=== PATIENT | male | born 1965 | race Caucasian/White ===

== ENCOUNTER 2017-06-22 10:03 | Day surgery (SDC) | payer BC ==
[2017-06-16 17:23] VITALS: BMI 27.3
[2017-06-22 11:08] VITALS: RESP 16; TEMP 98.3
[2017-06-22] MEDS: LACTATED RINGERS 1,000 ML IV SCH ×2 (11:15→11:47)
[2017-06-22] MEDS ORDERED: LIDOCAINE 1% INJ 10MG/ML (20 ML MDV) ONE (11:49)
[2017-06-22] MEDS ORDERED: PROPOFOL 10 MG/ML 20 ML VIAL IV ONE (11:49)
--- NOTE | 2017-06-22 12:27 | P.GSHP ---
History of Present Illness H&P Date: 06/22/17 Chief Complaint: GI bleed This is a 52-year-old male referred from Dr. Liao. Patient with rectal bleeding. He presents today for colonoscopy. Past Medical History Additional Past Medical History / Comment(s): jamie inguinal hernias,tinnitis left ear History of Any Multi-Drug Resistant Organisms: None Reported Additional Past Surgical History / Comment(s): tubes placed jamie ears,plastic ear drum to left ear Past Anesthesia/Blood Transfusion Reactions: No Reported Reaction Smoking Status: Former smoker - Past Family History Mother Family Medical History: Cancer Additional Family Medical History / Comment(s): breast,bone Father Additional Family Medical History / Comment(s): Alheimers Medications and Allergies Home Medications Medication Instructions Recorded Confirmed Type No Known Home Medications [No 06/16/17 06/16/17 History Known Home Medications] Allergies Allergy/AdvReac Type Severity Reaction Status Date / Time alcohol Allergy affects Verified 06/22/17 11:00 central nervous system Surgical - Exam Vital Signs Temp Pulse Resp BP Pulse Ox 98.3 F 87 16 135/88 96 06/22/17 11:06 06/22/17 11:06 06/22/17 11:06 06/22/17 11:06 06/22/17 11:06 - General well developed, no distress - Eyes PERRL - ENT normal pinna - Neck no masses - Respiratory normal expansion - Cardiovascular Rhythm: regular - Abdomen Abdomen: soft, non tender Assessment and Plan Assessment: We'll perform colonoscopy.
--- NOTE | 2017-06-22 12:38 | P.OP ---
Date of Procedure: 06/22/17 Preoperative Diagnosis: GI bleed Postoperative Diagnosis: Mild internal and Hemorrhoids Procedure(s) Performed: Colonoscopy Anesthesia: MAC Surgeon: Curtis Fajardo Pathology: none sent Condition: stable Disposition: PACU Description of Procedure: Patient's placed on the endoscopy table lateral position. He received IV sedation. Digital rectal exam was performed which revealed a few internal/ external hemorrhoids. Flexible colonoscope was then placed patient anus passed throughout the entire colon. The ileocecal valve was visualized. The cecum, ascending and transverse colon appeared normal. In the descending colon was a few scattered diverticula. Scope was then brought back into the sigmoid colon this appeared normal. Scope summer back the rectum and this was normal. Scope was withdrawn for patient.
[2017-06-22 12:57] VITALS: BP 116/87; PULSE 88
--- NOTE | 2017-06-27 05:22 | CDI ---
Outpatient Documentation Clarification Form Date: 06/27/2017 CDS/Lace Mender Name: Travis Hubbard Phone: If any questions, call Anupama Santiago Investigator at [phone] Patient Name: Erica Boggs Admit Date: 06/22/2017 Discharge Date:06/22/2017 ATTENTION: The [facility] Coding Staff appreciate your assistance in clarifying documentation. Please respond to the clarification below the line at the bottom and electronically sign. The [facility] Coding staff will review the response and follow-up if needed. Please note: Queries are made part of the Legal Health Record. If you have any questions, please contact the Investigator. Dear Dr. Fajardo, 52- year old male presents for colonoscopy for evaluation of GI Bleeding. As per H&P and Operative notes preoperative diagnosis was GI bleeding .Post- operative diagnosis was diverticulosis and internal hemorrhoids. Please clarify the etiology of GI bleeding and relation with diverticulosis and hemorrhoids Based on your clinical opinion please clarify etiology of GI Bleeding and relation with diverticulosis and hemorrhoids, is GI bleeding secondary to hemorrhoids or incidental finding Thank you for your kind consideration. MTDD
--- NOTE | 2017-07-04 07:34 | CDI ---
Outpatient Documentation Clarification Form Date: 06/27/2017 CDS/Hair Cutter Name: Travis Hubbard Phone: If any questions, call Anupama Santiago Grain Farmworker at [phone] Patient Name: Erica Boggs Admit Date: 06/22/2017 Discharge Date:06/22/2017 ATTENTION: The [facility] Coding Staff appreciate your assistance in clarifying documentation. Please respond to the clarification below the line at the bottom and electronically sign. The [facility] Coding staff will review the response and follow-up if needed. Please note: Queries are made part of the Legal Health Record. If you have any questions, please contact the Grain Farmworker. Dear Dr. Fajardo, 52- year old male presents for colonoscopy for evaluation of GI Bleeding. As per H&P and Operative notes preoperative diagnosis was GI bleeding .Post- operative diagnosis was diverticulosis and internal hemorrhoids. Please clarify the etiology of GI bleeding and relation with diverticulosis and hemorrhoids Based on your clinical opinion please clarify etiology of GI Bleeding and relation with diverticulosis and hemorrhoids, is GI bleeding secondary to hemorrhoids or incidental finding Thank you for your kind consideration. It is unclear whether his GI bleed was removed due to his diverticulosis or hemorrhoids at the time of his colonoscopy._ MTDD
== END 2017-06-22 13:33 | disposition home or self-care (01) ==
LOC: ORWHC2ENDO 10:03
PROVIDERS: ATTEND Surgery
DX: K57.30 Diverticulosis of large intestine without perforation or abscess without bleeding (principal); K64.8 Other hemorrhoids; K64.4 Residual hemorrhoidal skin tags; Z87.891 Personal history of nicotine dependence
CPT/HCPCS: 45378; J2001; J2704

== ENCOUNTER 2017-06-28 06:27 | Day surgery (SDC) | payer BC ==
[2017-06-16 16:43] VITALS: BMI 27.3
[~2017-06-28 06:27] MED LIST: DEXAMETHASONE SOD PHOSPHATE 10 MG/ML 1 ML VIAL IV ONE; HEPARIN SODIUM,PORCINE 5,000 UNIT/ML 1 ML VIAL SQ ONE; HYDROmorphone 0.5 MG/0.5 ML SYRINGE IVP PRN; MIDAZOLAM 2 MG/2 ML VIAL IV PRN; SCOPOLAMINE 1.5MG/72HR PATCH TRANSDERM ONE; ceFAZolin IN SWFI 2 GM/20 ML SYRINGE IVP ONE; fentaNYL (PF) 50 MCG/ML 2 ML AMP IV PRN
[2017-06-28 06:51] VITALS: RESP 16; TEMP 97.2
[2017-06-28] MEDS ORDERED: LACTATED RINGERS 1,000 ML IV ONE ×4 (07:06→08:02)
[2017-06-28] MEDS: LACTATED RINGERS 1,000 ML IV SCH ×2 (07:06→08:01)
[2017-06-28] MEDS ORDERED: LIDOCAINE 1% 20 ML VIAL (10MG/ML) FOR IV START INTRADERMA ONE (07:06)
[2017-06-28] MEDS: ONDANSETRON 4 MG/2 ML VIAL IVP ONE ×2 (07:20→11:07)
[2017-06-28] MEDS ORDERED: BUPIVACAINE (PF) 0.25% 30 ML VIAL SQ ONE (07:40)
--- NOTE | 2017-06-28 07:55 | P.GSHP ---
History of Present Illness H&P Date: 06/28/17 Chief Complaint: Right inguinal hernia This a 52-year-old male referred from Dr. Leonides Piedra. Patient complaints of right groin pain. He seen seen in the office and found have a right inguinal hernia. Past Medical History Additional Past Medical History / Comment(s): jamie inguinal hernias,tinnitis left ear History of Any Multi-Drug Resistant Organisms: None Reported Additional Past Surgical History / Comment(s): tubes placed jamie ears,plastic ear drum to left ear Past Anesthesia/Blood Transfusion Reactions: No Reported Reaction Additional Past Anesthesia/Blood Transfusion Reaction / Comment(s): no hx blood transfusion Smoking Status: Former smoker - Past Family History Mother Family Medical History: Cancer Additional Family Medical History / Comment(s): breast CA,bone Father Additional Family Medical History / Comment(s): Alheimers Medications and Allergies Home Medications Medication Instructions Recorded Confirmed Type No Known Home Medications [No 06/16/17 06/28/17 History Known Home Medications] Allergies Allergy/AdvReac Type Severity Reaction Status Date / Time alcohol Allergy affects Verified 06/28/17 06:41 central nervous system Surgical - Exam Vital Signs Temp Pulse Resp BP Pulse Ox 97.2 F L 66 16 137/90 98 06/28/17 06:50 06/28/17 06:50 06/28/17 06:50 06/28/17 06:50 06/28/17 06:50 - General well developed, no distress - Eyes PERRL - ENT normal pinna - Neck no masses - Respiratory normal expansion - Cardiovascular Rhythm: regular - Abdomen Abdomen: soft, non tender Assessment and Plan Assessment: Right inguinal hernia. We'll perform laparoscopic robotic-assisted repair.
[2017-06-28] MEDS ORDERED: ROCURONIUM BROMIDE 10 MG/ML 10 ML VIAL IV ONE (08:02)
[2017-06-28] MEDS ORDERED: fentaNYL (PF) 50 MCG/ML 2 ML AMP ONE (08:02)
[2017-06-28] MEDS ORDERED: GLYCOPYRROLATE 0.2 MG/ML 2 ML VIAL ONE (08:02)
[2017-06-28] MEDS ORDERED: LIDOCAINE 1% INJ 10MG/ML (20 ML MDV) ONE (08:02)
[2017-06-28] MEDS ORDERED: SUCCINYLCHOLINE CHLORIDE 100 MG/5 ML SYR IV ONE (08:02)
[2017-06-28] MEDS ORDERED: MIDAZOLAM 2 MG/2 ML VIAL ONE (08:02)
[2017-06-28] MEDS ORDERED: KETOROLAC 30 MG/ML 1 ML VIAL ONE (08:02)
[2017-06-28] MEDS ORDERED: PROPOFOL 10 MG/ML 20 ML VIAL IV ONE (08:02)
[2017-06-28] MEDS ORDERED: NEOSTIGMINE 1 MG/ML 10 ML VIAL ONE (08:02)
--- NOTE | 2017-06-28 09:43 | P.OP ---
Date of Procedure: 06/28/17 Preoperative Diagnosis: Right inguinal hernia Postoperative Diagnosis: Right inguinal hernia Procedure(s) Performed: Laparoscopic robotic repair of right inguinal hernia Anesthesia: WILBERT Surgeon: Curtis Fajardo Estimated Blood Loss (ml): 5 Pathology: none sent Condition: stable Disposition: PACU Description of Procedure: MThe patient's placed on the operating table in the supine position. The patient received general anesthesia. The patient's abdomen was prepped and draped in usual sterile fashion. The skin was anesthetized 1% local Xylocaine at the incision sites. Using an 11 blade a skin incision was made at the umbilicus. The fascia was grasped with a [place] and then the peritoneal cavity was entered with the Veress needle. Position of the Veress needle was confirmed with a positive drop test. After adequate insufflation a 5 mm trocar was placed into the peritoneal cavity. The Laparoscope was placed the peritoneal cavity. And a robotic 8 mm trocar was placed in the right lateral position and then another 8 mm robotic trochars placed in the left lateral position. The original 5 mm trocar was exchanged for a 12 mm trocar. The patient was placed in reverse Trendelenburg and then the patient was docked to the robot. Next the peritoneum over top of the hernia was incised and then using blunt and sharp dissection and electrocautery the hernia sac was dissected free from the floor of the inguinal canal. The hernia sac was completely reduced into the peritoneal cavity. And then using the Pro tire maintenance technician mesh the hernia was repaired. The peritoneum was then sutured with 20V lock suture. The patient was then undocked the robot. The needle was withdrawn from the peritoneal cavity. The umbilical trocar site was closed with 0 Ethibond suture. The skin was closed interrupted 3-0 Monocryl suture. Dermabond dressing was applied. Patient was sent to recovery in stable condition.
[2017-06-28] MEDS ORDERED: HYDROcodone/APAP 7.5-325MG 1 EACH TAB PO ONE (13:15)
[2017-06-28 13:17] VITALS: BP 128/74; PULSE 78
== END 2017-06-28 14:14 | disposition home or self-care (01) ==
LOC: OR 06:27
PROVIDERS: ATTEND Surgery
DX: K40.90 Unilateral inguinal hernia, without obstruction or gangrene, not specified as recurrent (principal); Z87.891 Personal history of nicotine dependence
CPT/HCPCS: 49650; C1781; J2250; J1644; J1100; J2710; J2405; J2001; J3010; J1885; J0330; J2704; J0690

== ENCOUNTER → 2021-04-07 | Outpatient (CLI) | payer BC ==
--- NOTE | 2021-04-07 15:00 | ECHOF ---
Referral Reason:R07.89 chest pain MEASUREMENTS -------- HEIGHT: 172.7 cm WEIGHT: 78.0 kg BP: IVSd: 1.2 cm (0.6 - 1.1) LVIDd: 4.8 cm (3.9 - 5.3) LVPWd: 1.1 cm (0.6 - 1.1) EDV(Teich): 110 ml IVSs: 1.8 cm LVIDs: 3.1 cm LVPWs: 1.4 cm %IVS Thck: 47 % ESV(Teich): 37 ml EF(Teich): 66 % %FS: 37 % SV(Teich): 73 ml RVIDd: 4.1 cm (< 3.3) LALs A4C: 4.8 cm LAAs A4C: 15.5 cm LAESV A-L A4C: 42 ml LAESV MOD A4C: 38 ml LALs A2C: 4.8 cm LAAs A2C: 16.5 cm LAESV A-L A2C: 48 ml LAESV MOD A2C: 46 ml LAESV(A-L): 45 ml LAESV Index (A-L): 23.68 ml/m Ao Diam: 3.7 cm (2.0 - 3.7) LA Diam: 4.3 cm (2.7 - 3.8) AV Cusp: 2.5 cm (1.5 - 2.6) EPSS: 0.3 cm MV E Zeke: 0.55 m/s MV DecT: 197 ms MV Dec Yancey: 2.8 m/s MV A Zeke: 0.75 m/s MV E/A Ratio: 0.73 MV PHT: 57 ms LVOT Vmax: 0.92 m/s LVOT maxP.39 mmHg AV Vmax: 0.92 m/s AV maxP.40 mmHg TR Vmax: 2.16 m/s TR maxP.73 mmHg RAP: 5.00 mmHg RVSP: 23.73 mmHg MV EF SLOPE: 71.27 mm/s (70 - 150) MV EXCURSION: 17.01 mm (> 18.000) FINDINGS -------- Sinus rhythm. This was a technically adequate study. The left ventricular size is normal. There is borderline concentric left ventricular hypertrophy. Overall left ventricular systolic function is normal with, an EF between 55 - 60 %. The diastolic filling pattern is normal for the age of the patient 8.18. The right ventricle is moderately enlarged. Normal LA size by volume 22+/-6 ml/m2. The right atrial size is normal. Mobile interatrial septum. The aortic valve is trileaflet and appears structurally normal. There is no evidence of aortic regu rgitation. There is no evidence of aortic stenosis. There is trace mitral regurgitation. Mild tricuspid regurgitation present. There is no evidence of pulmonary hypertension. The right v entricular systolic pressure, as measured by Doppler, is 23.73mmHg. There is no pulmonic regurgitation present. The aortic root size is normal. IVC Not well visulized. There is no pericardial effusion. CONCLUSIONS -------- 1. The left ventricular size is normal. 2. There is borderline concentric left ventricular hypertrophy. 3. Overall left ventricular systolic function is normal with, an EF between 55 - 60 %. 4. The right ventricle is moderately enlarged. 5. There is trace mitral regurgitation. 6. Mild tricuspid regurgitation present. PANTRY STEWARD/STEWARDESS: Velvet Graves RDCS
--- NOTE | 2021-04-08 11:12 | P.STRESS ---
- Stress Test Note Stress Test Results/Findings: Exam Performed: EH stress test Exam Date: 04/07/21 Reason for Exam: CP Height: 5 ft 7 in Weight: 78.018 kg Protocol: ROBINSON Stage: 4 Duration of Exercise: 12:00 Resting Heart Rate: 88 Resting Blood Pressure: 138/82 Maximum Achieved Heart Rate: 180 Maximum Achieved Blood Pressure: 183/95 85% PMHR: 140 100% PMHR: 165 METS: 12.1 Technologist Comment: Stress Test Results/Findings: Patient exercise and a Robinson protocol for 12 minutes achieving a peak heart rate 180 beats a minute Normal blood pressure response to exercise No exercise induced arrhythmias No ST segment abnormalities of ischemia Excellent exercise capacity
--- NOTE | 2021-04-09 09:07 | EST ---
Stress Test Results/Findings: Exam Performed: stress test Exam Date: 04/07/21 Reason for Exam: CP Height: 5 ft 7 in Weight: 78.018 kg Protocol: ROBINSON Stage: 4 Duration of Exercise: 12:00 Resting Heart Rate: 88 Resting Blood Pressure: 138/82 Maximum Achieved Heart Rate: 180 Maximum Achieved Blood Pressure: 183/95 85% PMHR: 140 100% PMHR: 165 METS: 12.1 Technologist Comment: Stress Test Results/Findings: Patient exercise and a Robinson protocol for 12 minutes achieving a peak heart rate 180 beats a minute Normal blood pressure response to exercise No exercise induced arrhythmias No ST segment abnormalities of ischemia Excellent exercise capacity MTDD
== END | disposition home or self-care (01) ==
LOC: RADECHMAIN 08:23
PROVIDERS: ATTEND Family Medicine
DX: I51.7 Cardiomegaly (principal); I34.0 Nonrheumatic mitral (valve) insufficiency
CPT/HCPCS: 93017; 93306

== ENCOUNTER → 2022-06-12 | Outpatient (CLI) | payer BC ==
[2022-06-12 11:16] LABS: HCT 49.4 % (39.6-50.0); HGB 16.9 g/dL (13.0-17.0); MCH 28.8 pg (27.0-32.0); MCHC 34.2 g/dL (32.0-37.0); MCV 84.3 fL (80.0-97.0); Mean Platelet Volume 11.7 fL (9.5-12.2); NRBC Per 100 WBC 0 /100 WBCS (0.0-0.0); Platelet Count 176 X 10*3/uL (140-440); RBC 5.86 X 10*6/uL (4.40-5.60); RDW 12.1 % (11.5-14.5); WBC 4.72 X 10*3/uL (4.50-10.00)
[2022-06-12 11:46] LABS: ALT 38 U/L (10-49); AST 33 U/L (14-35); African American GFR (CKD) 87.5 (60.0-200.0); Albumin 4.3 g/dL (3.8-4.9); Albumin/Globulin Ratio 1.78 (1.60-3.17); Alkaline Phosphatase 85 U/L (41-126); BUN/Creat Ratio 13.85 Ratio (12.00-20.00); Blood Urea Nitrogen 15.1 mg/dL (9.0-27.0); Calcium 9.7 mg/dL (8.7-10.3); Carbon Dioxide 25.9 mmol/L (20.0-27.5); Chloride 108 mmol/L (96-109); Chol/HDL Ratio 5.42 Ratio; Globulin 2.4 g/dL (1.6-3.3); Glucose 101 mg/dL (70-110); LDL Cholesterol,Calculated 123.8 mg/dL (0.0-131.0); Non-African American GFR(CKD) 75.5 (60.0-200.0); Potassium 4.9 mmol/L (3.5-5.5); Sodium 144 mmol/L (135-145); Total Protein 6.8 g/dL (6.2-8.2)
== END | disposition home or self-care (01) ==
LOC: LABWHC1 08:30
PROVIDERS: ATTEND Family Medicine
DX: Z00.00 Encounter for general adult medical examination without abnormal findings (principal)
CPT/HCPCS: 36415; 80053; 80061; 82306; 83036; 84439; 84443; 85027

== ENCOUNTER 2022-08-12 02:22 | Emergency (ER) | payer BC ==
[2022-08-12 02:31] VITALS: RESP 18; TEMP 97.6
[2022-08-12 02:43] LABS: Basophils % (A) 1 %; Eosinophils # (A) 0.3 k/uL (0-0.7); Eosinophils % (A) 5 %; HCT 45.6 % (39.0-53.0); HGB 16.2 gm/dL (13.0-17.5); Lymphocytes % (A) 33 %; MCH 29.9 pg (25.0-35.0); MCHC 35.6 g/dL (31.0-37.0); Mean Platelet Volume 9.1; Monocytes # (A) 0.6 k/uL (0-1.0); Monocytes % (A) 9 %; Neutrophils # (A) 3.1 k/uL (1.3-7.7); Neutrophils % (A) 51 %; Platelet Count 164 k/uL (150-450); RBC 5.43 m/uL (4.30-5.90); RDW 12.3 % (11.5-15.5); WBC 6.1 k/uL (3.8-10.6)
[2022-08-12 02:53] LABS: ALT 36 U/L (4-49); AST 45 U/L (17-59); African American GFR (CKD) >90 (>60 ml/min/1.73 sqM); Alkaline Phosphatase 61 U/L (38-126); Anion Gap 9 mmol/L; Blood Urea Nitrogen 18 mg/dL (9-20); Carbon Dioxide 26 mmol/L (22-30); Chloride 103 mmol/L (98-107); Glucose 95 mg/dL (74-99); Lipase 94 U/L (23-300); Magnesium 2.2 mg/dL (1.6-2.3); Non-African American GFR(CKD) >90 (>60 ml/min/1.73 sqM); Potassium 3.9 mmol/L (3.5-5.1); Sodium 138 mmol/L (137-145); Total Bilirubin 0.9 mg/dL (0.2-1.3); Total Protein 6.8 g/dL (6.3-8.2)
[2022-08-12 03:04] LABS: INR 0.9 (<1.2); Prothrombin Time 10.1 sec (9.0-12.0)
[2022-08-12 03:08] LABS: Partial Thromboplastin Time 20.1 sec (22.0-30.0)
--- NOTE | 2022-08-12 03:52 | XR ---
EXAM: XR Chest, 2 Views CLINICAL HISTORY: ITS.REASON XR Reason: Syncope TECHNIQUE: Frontal and lateral views of the chest. COMPARISON: No relevant prior studies available. FINDINGS: Lungs: No consolidation or mass. Pleural space: No effusion. Heart: Mild cardiomegaly. Bones/joints: No acute findings. IMPRESSION: No acute cardiopulmonary process.
--- NOTE | 2022-08-12 03:58 | ED ---
General Adult HPI - General Chief complaint: Syncope Stated complaint: Syncope Time Seen by Provider: 08/12/22 02:23 Source: EMS Mode of arrival: EMS - History of Present Illness Initial comments: This is a 57-year-old male with no past medical history presents emergency department via EMS after a syncopal episode. The patient reported that he got up out of bed quickly throughout the night and experienced a cramping sensation in his right thigh where he started to experience flushing sensation as well as diaphoresis and stated that he then called out to his . It was noted that the did present to him and noted that the patient did go "unresponsive" for 15 seconds where he would not speak and was staring straight ahead. There was no seizure-like activity noted. The patient was found to be extremely diaphoretic and the did call 911 at that point. The patient himself does not remember what happened during that time but stated that he felt warm and that he was lightheaded about to pass out. The patient denied any acute pain or complaints currently at this time and was resting in bed comfortable B. The patient stated that he has never had any issues with syncope in the past. The patient denied any nausea, vomiting, fevers and chills. - Related Data Previous Rx's Medication Instructions Recorded Docusate [Colace] 100 mg PO BID #20 capsule 06/28/17 HYDROcodone/APAP 7.5-325MG [Moira 1 each PO Q4H PRN #30 tab 06/28/17 7.5] Allergies Allergy/AdvReac Type Severity Reaction Status Date / Time alcohol Allergy affects Verified 06/28/17 06:41 central nervous system Review of Systems ROS Statement: Those systems with pertinent positive or pertinent negative responses have been documented in the HPI. ROS Other: All systems not noted in ROS Statement are negative. Past Medical History Additional Past Medical History / Comment(s): jamie inguinal hernias,tinnitis left ear History of Any Multi-Drug Resistant Organisms: None Reported Additional Past Surgical History / Comment(s): tubes placed jamie ears,plastic ear drum to left ear Past Anesthesia/Blood Transfusion Reactions: No Reported Reaction Past Psychological History: No Psychological Hx Reported Past Alcohol Use History: None Reported Past Drug Use History: None Reported - Past Family History Mother Family Medical History: Cancer Father Additional Family Medical History / Comment(s): Alheimers General Exam Limitations: no limitations General appearance: alert, in no apparent distress Head exam: Present: atraumatic, normocephalic, normal inspection Eye exam: Present: normal appearance, PERRL Pupils: Present: normal accommodation ENT exam: Present: normal exam, normal oropharynx, mucous membranes moist Neck exam: Present: normal inspection, full ROM Respiratory exam: Present: normal lung sounds bilaterally Cardiovascular Exam: Present: regular rate, normal rhythm, normal heart sounds GI/Abdominal exam: Present: soft, normal bowel sounds Extremities exam: Present: normal inspection, full ROM Back exam: Present: normal inspection, full ROM Neurological exam: Present: alert, oriented X3, CN II-XII intact Psychiatric exam: Present: normal affect, normal mood Skin exam: Present: warm, dry Course Vital Signs 08/12/22 08/12/22 08/12/22 02:23 02:29 02:30 Temperature 97.6 F Pulse Rate 72 68 66 Respiratory 18 17 15 Rate Blood Pressure 124/95 124/95 O2 Sat by Pulse 96 Oximetry 08/12/22 08/12/22 08/12/22 03:00 03:30 04:00 Temperature Pulse Rate 79 70 85 Respiratory 20 18 18 Rate Blood Pressure 121/96 124/81 127/85 O2 Sat by Pulse 96 95 96 Oximetry EKG Findings - EKG Comments: EKG Findings:: An EKG was obtained and was interpreted by myself showing a rate of 68, OK interval 166, QRS duration of 94 and QTC of 390. This EKG showed a normal sinus rhythm with no ST segment elevation or depression noted. Medical Decision Making - Medical Decision Making Was pt. sent in by a medical professional or institution (, PA, BOTANY LABORATORY ASSISTANT, urgent care, hospital, or [place] health care facility...) When possible be specific @ -No Did you speak to anyone other than the patient for history (EMS, parent, family, police, friend...)? What history was obtained from this source @ -No Did you review nursing and triage notes (agree or disagree)? Why? @ -I reviewed and agree with nursing and triage notes Were old charts reviewed (outside hosp., previous admission, EMS record, old EKG, old radiological studies, urgent care reports/EKG's, [place] health care facility records)? Report findings @ -No old charts were reviewed Differential Diagnosis (chest pain, altered mental status, abdominal pain women, abdominal pain men, vaginal bleeding, weakness, fever, dyspnea, syncope, headache, dizziness, GI bleed, back pain, seizure, CVA, palpatations, mental health)? @ -Vasovagal syncope, ACS, pneumonia EKG interpreted by me (3pts min.). @ -As above X-rays interpreted by me (1pt min.). @ -Chest x-ray was obtained and was interpreted by myself showing no acute process. CT interpreted by me (1pt min.). @ -None done U/S interpreted by me (1pt. min.). @ -None done What testing was considered but not performed or refused? (CT, X-rays, U/S, labs)? Why? @ -None What meds were considered but not given or refused? Why? @ -None Did you discuss the management of the patient with other professionals (professionals i.e. , PA, BOTANY LABORATORY ASSISTANT, lab, RT, psych nurse, social work specialist, fish egg packer, teacher, conservation science officer, medical case worker)? Give summary @ -No Was smoking cessation discussed for >3mins.? @ -No Was critical care preformed (if so, how long)? @ -No Were there social determinants of health that impacted care today? How? (Homele ssness, low income, unemployed, alcoholism, drug addiction, transportation, low edu. Level, literacy, decrease access to med. care, long-term, rehab)? @ -No Was there de-escalation of care discussed even if they declined (Discuss DNR or withdrawal of care, Hospice)? DNR status @ -No What co-morbidities impacted this encounter? (DM, HTN, Smoking, COPD, CAD, Cancer, CVA, ARF, Chemo, Hep., AIDS, mental health diagnosis, sleep apnea, morbid obesity)? @ -None Was patient admitted / discharged? Hospital course, mention meds given and route, prescriptions, significant lab abnormalities, going to OR and other pertinent info. @ -The patient was seen and evaluated [facility]. Physical exam, the patient was resting in bed without any acute distress. Vital signs admission were stable. All laboratory workup was within normal limits and the patient remained stable. The patient likely had a vasovagal syncopal episode and continued to remain stable. The patient was advised to continue to monitor his symptoms at home and to continue to hydrate. The patient was stable for discharge home to follow-up with his primary care physician for continued evaluation. The patient and his are agreeable to this and all other questions were answered. The patient was discharged home in stable condition. Undiagnosed new problem with uncertain prognosis? @ -No Drug Therapy requiring intensive monitoring for toxicity (Heparin, Nitro, Insulin, Cardizem)? @ -No Were any procedures done? @ -No Diagnosis/symptom? @ -Vasovagal syncope Acute, or Chronic, or Acute on Chronic? @ -Acute Uncomplicated (without systemic symptoms) or Complicated (systemic symptoms)? @ -Uncomplicated Side effects of treatment? @ -No Exacerbation, Progression, or Severe Exacerbation? @ -No Poses a threat to life or bodily function? How? (Chest pain, [place], [place], pneumonia, PE, COPD, DKA, ARF, appy, cholecystitis, CVA, Diverticulitis, Homicidal, Suicidal, threat to staff... and all critical care pts) @ -No - Lab Data Result diagrams: 08/12/22 02:29 08/12/22 02:29 Lab Results 08/12/22 08/12/22 08/12/22 Range/Units 02:29 02:29 02:29 WBC 6.1 (3.8-10.6) k/uL RBC 5.43 (4.30-5.90) m/uL Hgb 16.2 (13.0-17.5) gm/dL Hct 45.6 (39.0-53.0) % MCV 84.0 (80.0-100.0) fL MCH 29.9 (25.0-35.0) pg MCHC 35.6 (31.0-37.0) g/dL RDW 12.3 (11.5-15.5) % Plt Count 164 (150-450) k/uL MPV 9.1 Neutrophils % 51 % Lymphocytes % 33 % Monocytes % 9 % Eosinophils % 5 % Basophils % 1 % Neutrophils # 3.1 (1.3-7.7) k/uL Lymphocytes # 2.0 (1.0-4.8) k/uL Monocytes # 0.6 (0-1.0) k/uL Eosinophils # 0.3 (0-0.7) k/uL Basophils # 0.0 (0-0.2) k/uL PT 10.1 (9.0-12.0) sec INR 0.9 (<1.2) APTT 20.1 L (22.0-30.0) sec D-Dimer 0.29 (<0.60) mg/L FEU Sodium 138 (137-145) mmol/L Potassium 3.9 (3.5-5.1) mmol/L Chloride 103 (98-107) mmol/L Carbon Dioxide 26 (22-30) mmol/L Anion Gap 9 mmol/L BUN 18 (9-20) mg/dL Creatinine 0.79 (0.66-1.25) mg/dL Est GFR (CKD-EPI)AfAm >90 (>60 ml/min/1.73 sqM) Est GFR (CKD-EPI)NonAf >90 (>60 ml/min/1.73 sqM) Glucose 95 (74-99) mg/dL Calcium 9.0 (8.4-10.2) mg/dL Magnesium 2.2 (1.6-2.3) mg/dL Total Bilirubin 0.9 (0.2-1.3) mg/dL AST 45 (17-59) U/L ALT 36 (4-49) U/L Alkaline Phosphatase 61 (38-126) U/L Troponin I (0.000-0.034) ng/mL Total Protein 6.8 (6.3-8.2) g/dL Albumin 4.0 (3.5-5.0) g/dL Lipase 94 (23-300) U/L 08/12/22 Range/Units 02:29 WBC (3.8-10.6) k/uL RBC (4.30-5.90) m/uL Hgb (13.0-17.5) gm/dL Hct (39.0-53.0) % MCV (80.0-100.0) fL MCH (25.0-35.0) pg MCHC (31.0-37.0) g/dL RDW (11.5-15.5) % Plt Count (150-450) k/uL MPV Neutrophils % % Lymphocytes % % Monocytes % % Eosinophils % % Basophils % % Neutrophils # (1.3-7.7) k/uL Lymphocytes # (1.0-4.8) k/uL Monocytes # (0-1.0) k/uL Eosinophils # (0-0.7) k/uL Basophils # (0-0.2) k/uL PT (9.0-12.0) sec INR (<1.2) APTT (22.0-30.0) sec D-Dimer (<0.60) mg/L FEU Sodium (137-145) mmol/L Potassium (3.5-5.1) mmol/L Chloride (98-107) mmol/L Carbon Dioxide (22-30) mmol/L Anion Gap mmol/L BUN (9-20) mg/dL Creatinine (0.66-1.25) mg/dL Est GFR (CKD-EPI)AfAm (>60 ml/min/1.73 sqM) Est GFR (CKD-EPI)NonAf (>60 ml/min/1.73 sqM) Glucose (74-99) mg/dL Calcium (8.4-10.2) mg/dL Magnesium (1.6-2.3) mg/dL Total Bilirubin (0.2-1.3) mg/dL AST (17-59) U/L ALT (4-49) U/L Alkaline Phosphatase (38-126) U/L Troponin I 0.017 (0.000-0.034) ng/mL Total Protein (6.3-8.2) g/dL Albumin (3.5-5.0) g/dL Lipase (23-300) U/L Disposition Clinical Impression: Vasovagal syncope Disposition: HOME SELF-CARE Condition: Stable Instructions (If sedation given, give patient instructions): Syncope (DC) Is patient prescribed a controlled substance at d/c from ED?: No Referrals: Leonides Piedra DO [Primary Care Provider] - 1-2 days Time of Disposition: 03:45
[2022-08-12 04:25] VITALS: BP 127/85; PULSE 85
== END 2022-08-12 05:35 | disposition home or self-care (01) ==
LOC: EC 02:22
DX: R55 Syncope and collapse (principal); Z91.048 Other nonmedicinal substance allergy status
CPT/HCPCS: 36415; 71046; 80053; 83690; 83735; 84484; 85025; 85379; 85610; 85730; 93005; 99285

== ENCOUNTER → 2023-02-01 | Outpatient (CLI) | payer BC ==
[2023-02-02 01:43] LABS: Basophils # (A) 0.06 X 10*3/uL (0.00-0.10); Basophils % (A) 0.8 %; Eosinophils # (A) 0.13 X 10*3/uL (0.04-0.35); Eosinophils % (A) 1.8 %; HCT 45.3 % (39.6-50.0); Lymphocytes # (A) 1.62 X 10*3/uL (0.90-5.00); MCH 29.5 pg (27.0-32.0); MCHC 35.3 g/dL (32.0-37.0); MCV 83.4 FL (80.0-97.0); Monocytes # (A) 0.58 X 10*3/uL (0.20-1.00); Monocytes % (A) 7.9 %; NRBC Per 100 WBC 0 X 10*3/uL (0.00-0.01); Neutrophils # (A) 4.95 X 10*3/uL (1.80-7.70); Neutrophils % (A) 67.4 %; Platelet Count 204 X 10*3/uL (140-440); RBC 5.43 X 10*6/uL (4.40-5.60); RDW 12.4 % (11.5-14.5); WBC 7.35 X 10*3/uL (4.50-10.00)
[2023-02-02 02:15] LABS: Blood Urea Nitrogen 15.3 mg/dL (9.0-27.0); Calcium 9.5 mg/dL (8.7-10.3); Carbon Dioxide 24.8 mmol/L (21.6-31.8); Chloride 107 mmol/L (96-109); Glucose 91 mg/dL (70-110); Sodium 141 mmol/L (135-145)
== END | disposition home or self-care (01) ==
LOC: LABPAT 16:15
PROVIDERS: ATTEND Urology
DX: Z01.812 Encounter for preprocedural laboratory examination (principal); R97.20 Elevated prostate specific antigen [PSA]
CPT/HCPCS: 80048; 85025

== ENCOUNTER 2023-02-10 10:26 | Day surgery (SDC) | payer BC ==
[2023-02-07 08:26] VITALS: BMI 28.0
--- NOTE | 2023-02-09 20:51 | P.GSHP ---
History of Present Illness H&P Date: 02/09/23 Chief Complaint: Elevated PSA level The patient is a 57-year-old white male with a rising PSA level. Prostate ultrasound in July 2017 showed a prostate volume of 65 mL, and biopsies were negative. Repeat biopsies in March 2021 revealed a prostate volume of 83 mL, and biopsies again were negative. An MRI of the prostate in August 2021 showed a prostate volume of 93 mL, with no suspicious lesions. The PSA level has risen to 16.7. Past Medical History Past Medical History: No Reported History Additional Past Medical History / Comment(s): tinnitis left ear History of Any Multi-Drug Resistant Organisms: None Reported Past Surgical History: Ear Surgery, Hernia Repair Additional Past Surgical History / Comment(s): tubes placed jamie ears, plastic ear drum to left ear Past Anesthesia/Blood Transfusion Reactions: Postoperative Nausea & Vomiting (PONV) Past Psychological History: No Psychological Hx Reported Smoking Status: Former smoker Past Alcohol Use History: None Reported Additional Past Alcohol Use History / Comment(s): quit smoking , smoked approx few yrs <1ppd Past Drug Use History: None Reported - Past Family History Mother Family Medical History: Cancer Father Additional Family Medical History / Comment(s): Alzheimers Medications and Allergies Home Medications Medication Instructions Recorded Confirmed Type No Known Home Medications 02/07/23 02/07/23 History Allergies Allergy/AdvReac Type Severity Reaction Status Date / Time alcohol Allergy affects Verified 02/07/23 08:18 central nervous system Surgical - Exam - General well developed, well nourished, no distress - Respiratory normal respiratory effort - Abdomen Abdomen: soft, non tender, no guarding, no rigid, no rebound - Genitourinary normal penis with no external lesions, testicles non-tender - Rectum Rectum: normal sphincter tone, no masses, other (Prostate enlarged but smooth) - Psychiatric oriented to time, oriented to person, oriented to place, speech is normal, memory intact Assessment and Plan Plan: Transrectal ultrasound-guided transperineal saturation prostate biopsies. The rationale for this is been reviewed in detail with the patient. He has been made aware of potential risks, which include anesthesia, bleeding, and infection.
[~2023-02-10 10:26] MED LIST changes: -DEXAMETHASONE SOD PHOSPHATE 10 MG/ML 1 ML VIAL IV ONE; -HEPARIN SODIUM,PORCINE 5,000 UNIT/ML 1 ML VIAL SQ ONE; +LACTATED RINGERS 1,000 ML IV SCH; -MIDAZOLAM 2 MG/2 ML VIAL IV PRN; +ONDANSETRON 4 MG/2 ML VIAL IVP ONE; -SCOPOLAMINE 1.5MG/72HR PATCH TRANSDERM ONE; -ceFAZolin IN SWFI 2 GM/20 ML SYRINGE IVP ONE; -fentaNYL (PF) 50 MCG/ML 2 ML AMP IV PRN
[2023-02-10 11:54] VITALS: RESP 16
[2023-02-10] MEDS ORDERED: HYDROmorphone (PF) 1 MG/ML ONE (12:28)
[2023-02-10] MEDS ORDERED: LIDOCAINE 1% INJ 10MG/ML (20 ML MDV) ONE (12:28)
[2023-02-10] MEDS ORDERED: MIDAZOLAM 2 MG/2 ML VIAL ONE (12:28)
[2023-02-10] MEDS ORDERED: fentaNYL (PF) 50 MCG/ML 2 ML AMP ONE (12:28)
[2023-02-10] MEDS ORDERED: PROPOFOL 10 MG/ML 20 ML VIAL IV ONE (12:28)
--- NOTE | 2023-02-10 14:08 | P.OP ---
Date of Procedure: 02/10/23 Preoperative Diagnosis: Elevated PSA level Postoperative Diagnosis: Same Procedure(s) Performed: Ultrasound-guided transperineal saturation biopsies of the prostate Anesthesia: WILBERT Surgeon: Omid Kearns Estimated Blood Loss (ml): 20 IV fluids (ml): 700 Pathology: other (Prostate biopsies) Condition: stable Disposition: PACU Indications for Procedure: The patient is a 57-year-old white male with a rising PSA level. Prostate ultrasound in July 2017 showed a prostate volume of 65 mL, and biopsies were negative. Repeat biopsies in March 2021 revealed a prostate volume of 83 mL, and biopsies again were negative. An MRI of the prostate in August 2021 showed a prostate volume of 93 mL, with no suspicious lesions. The PSA level has risen to 16.7. Operative Findings: 69 prostate biopsies obtained. No hypoechoic lesions seen. Description of Procedure: The patient was taken to the operating room and placed in the dorsolithotomy position, with his legs supported in Fabio stirrups. The external genitalia was prepped and draped sterilely. The Didi-Dache transrectal ultrasound probe was placed intrarectally. It was then placed within the stabilizing stand. The prostate was imaged in both the axial and sagittal planes. No hypoechoic lesions or other abnormalities were seen. The prostate was significantly enlarged, predominantly within the transitional zone. Using the grid and the Biopty gun, under ultrasonic guidance, a total of 69 biopsies were obtained from the peripheral zone and transitional zone bilaterally. Postbiopsy scanning showed no evidence of a periprosthetic hematoma. The transrectal ultrasound probe was removed and the procedure was terminated. Mild perineal ecchymosis is noted. The patient tolerated the procedure well was taken to the recovery room in stable condition.
[2023-02-10 14:12] VITALS: TEMP 97.2
[2023-02-10] MEDS ORDERED: ONDANSETRON 4 MG/2 ML VIAL ONE (15:07)
[2023-02-10] MEDS ORDERED: ONDANSETRON 4 MG/2 ML VIAL IVP ONE (15:08)
[2023-02-10] MEDS ORDERED: METOCLOPRAMIDE 5 MG/ML 2 ML VIAL ONE (16:59)
[2023-02-10] MEDS ORDERED: METOCLOPRAMIDE 5 MG/ML 2 ML VIAL IVP ONE (17:05)
[2023-02-10 17:52] VITALS: BP 122/70; PULSE 75
== END 2023-02-10 17:49 | disposition home or self-care (01) ==
LOC: OR 10:26
PROVIDERS: ATTEND Urology
DX: R97.20 Elevated prostate specific antigen [PSA] (principal); Z87.891 Personal history of nicotine dependence; Z98.890 Other specified postprocedural states; Z80.8 Family history of malignant neoplasm of other organs or systems; Z91.048 Other nonmedicinal substance allergy status
CPT/HCPCS: 55706; 88305; J2250; J2765; J0690; J2405; J2001; J3010; J1170; J2704

== ENCOUNTER → 2024-08-21 | Outpatient (CLI) | payer MEDICAID | END | disposition home or self-care (01) | LOC: LABWHC1 07:31 | PROVIDERS: ATTEND Urology | DX: R97.20 Elevated prostate specific antigen [PSA] (principal) | CPT/HCPCS: 36415; 84153 ==